=== PATIENT | female | born 1985 | race Caucasian/White ===

== ENCOUNTER 2018-11-27 18:29 | Emergency (ER) | payer SELFPAY ==
[~2018-11-27] VITALS: Ht 172.7 cm; Wt 62.0 kg
[2018-11-27] MEDS ORDERED: KETOROLAC 15MG/ML VIAL IM ONE (19:00)
[2018-11-27 20:21] VITALS: BP 96/61
== END 2018-11-27 21:04 | disposition home or self-care (01) ==
LOC: ER 18:29
DX: S20.212A Contusion of left front wall of thorax, initial encounter (principal); M54.89 Other dorsalgia; M25.511 Pain in right shoulder; V49.49XA Driver injured in collision with other motor vehicles in traffic accident, initial encounter; Y93.89 Activity, other specified; Y92.488 Other paved roadways as the place of occurrence of the external cause; Z88.6 Allergy status to analgesic agent
CPT/HCPCS: 71101; 73030; 96372; 99283; J1885